=== PATIENT | female | born 1955 | race Caucasian/White ===

== ENCOUNTER 2017-02-21 22:55 | Emergency (ER) | payer OTHER ==
[2017-02-21] MEDS ORDERED: Sodium Chloride 0.9% 1,000 ML IV ONE (23:56)
[2017-02-21] MEDS ORDERED: Albuterol 0.042% Inhal Sol (1.25 mg/3 mL) UD IH STA (23:56)
--- NOTE | 2017-02-21 23:59 | C.PDOC ---
History Of Present Illness Patient came in due to vomiting and nause earlier. She was fgiven zofran with improvement of her symptom. Also complaining of feeling short of breathe. Denies any chest pain. Time Seen by Provider: 02/21/17 23:57 Chief Complaint (Nursing): Shortness Of Breath History Per: Patient, Family, Other (vomiting ) History/Exam Limitations: no limitations Onset/Duration Of Symptoms: Hrs Current Symptoms Are (Timing): Better Initiating Event: Other (vomiting) Quality: Other (shortness of breathing) Exacerbating Factor(s): denies: Exertion, Laying Flat, Coughing Current Respiratory Medications: See Home Med List Pain Scale Rating Of: 0 Associated Symptoms: Other (nausea before) Recent travel outside of the [place]: No Additional History Per: Family Past Medical History Vital Signs: Last Vital Signs Temp 98.6 F 02/22/17 02:53 Pulse 88 02/22/17 02:53 Resp 14 02/22/17 02:53 BP 90/56 L 02/22/17 02:53 Pulse Ox 100 02/22/17 04:02 - Medical History PMH: HTN, Hyperlipidemia Family History: States: Unknown Family Hx - Social History Hx Tobacco Use: No Hx Alcohol Use: No Hx Substance Use: No - Immunization History Hx Tetanus Toxoid Vaccination: No Hx Influenza Vaccination: No Hx Pneumococcal Vaccination: No Review Of Systems Constitutional: Negative for: Fever, Chills, Sweats Eyes: Negative for: Pain ENT: Negative for: Ear Pain, Ear Discharge, Nose Pain, Nose Discharge Cardiovascular: Negative for: Chest Pain, Palpitations, Orthopnea, Paroxysmal Noc. Dyspnea, Edema, Light Headedness Respiratory: Positive for: Shortness of Breath. Negative for: Cough, Wheezing Gastrointestinal: Positive for: Nausea, Vomiting. Negative for: Abdominal Pain , Diarrhea Genitourinary: Negative for: Dysuria, Frequency, Incontinence Musculoskeletal: Negative for: Neck Pain, Shoulder Pain, Arm Pain Skin: Negative for: Rash Neurological: Negative for: Weakness, Numbness, Incoordination, Change in Speech , Confusion, Seizures Psych: Negative for: Anxiety Physical Exam - Physical Exam Appears: Well, Non-toxic Skin: Normal Color Head: Atraumatic Eye(s): bilateral: Normal Inspection, PERRL, EOMI Nose: Normal Tongue: Normal Appearing Lips: Normal Appearing Teeth: Normal Dentition Throat: Normal Neck: Normal Chest: Symmetrical, No Deformity, No Tenderness, No Ecchymosis, No Subcutaneous Emphysema Cardiovascular: Rhythm Regular Respiratory: Wheezing, Other (occa. wheezes) Gastrointestinal/Abdominal: Normal Exam Back: Normal Inspection Extremity: Normal ROM, No Tenderness, No Pedal Edema, No Calf Tenderness ED Course And Treatment - Laboratory Results Result Diagrams: 02/22/17 00:01 02/22/17 00:01 O2 Sat by Pulse Oximetry: 100 - Radiology CXR: Interpreted by Me, Viewed By Me CXR Interpretation: Yes: No Acute Disease. No: Infiltrates Progress Note: Patient stats she feels better and back to normal. Exam: good air entry, no wheezing noted, Lungs: clear. Pulse Ox. _94 % on room air. Reevaluation Time: 02:29 Reassessment Condition: Improved Disposition Counseled Patient/Family Regarding: Diagnosis - Disposition Referrals: Mikie Burnette MD [Staff Provider] - Disposition: HOME/ ROUTINE Disposition Time: 02:30 Condition: GOOD Prescriptions: Albuterol Sulfate [Proventil Hfa] 0.09 mg IH Q6 #1 bottle Instructions: Asthma (DC), Wheezing (ED) Forms: Work Excuse - POA Present On Arrival: None - Clinical Impression Clinical Impression: Wheezes, Asthma
[2017-02-22 00:05] LABS: BASO % 0.4 % (0.0-2.0); EOS # 0.1 K/uL (0.0-0.7); EOS % 0.9 % (0.0-4.0); HEMATOCRIT 41.4 % (34.0-47.0); LYMPH # 1.2 K/uL (1.0-4.3); LYMPH % 11.2 % (20.0-40.0); MEAN CELL VOLUME 86.8 fL (81.0-99.0); MEAN CORPUSCULAR HEMOGLOBIN 28.3 pg (27.0-31.0); MEAN CORPUSCULAR HGB CONC 32.6 g/dL (33.0-37.0); MEAN PLATELET VOLUME 8.7 fL (7.2-11.7); MONO # 0.9 K/uL (0.0-0.8); MONO % 8.1 % (0.0-10.0); RED CELL DISTRIBUTION WIDTH 13.5 % (11.5-14.5); WHITE BLOOD COUNT 10.6 K/uL (4.8-10.8)
[2017-02-22] MEDS ORDERED: Albuterol 0.083% Inhal Sol (2.5 mg/3 mL) UD ONE ×2 (00:06→00:50)
[2017-02-22] MEDS ORDERED: Sodium Chloride 0.9% 1,000 ML ONE (00:08)
[2017-02-22 00:13] LABS: CHLORIDE 97 mmol/L (98-107)
[2017-02-22 00:14] LABS: POTASSIUM 3.8 mmol/L (3.6-5.2); SODIUM 137 mmol/L (132-148)
[2017-02-22 00:16] LABS: ALB/GLOB RATIO 1.2 (1.0-2.1); ALKALINE PHOSPHATASE 90 U/L (38-126); AST/SGOT 34 U/L (14-36); BILIRUBIN,TOTAL 0.8 mg/dL (0.2-1.3); CARBON DIOXIDE 24 mmol/L (22-30); GFR AFRICAN-AMERICAN > 60; TOTAL PROTEIN 8.3 g/dL (6.3-8.3)
[2017-02-22 00:17] LABS: ALT/SGPT 33 U/L (9-52); BLOOD UREA NITROGEN 23 mg/dL (7-17); CALCIUM 8.9 mg/dl (8.6-10.4); GLUCOSE,RANDOM 122 mg/dL (65-105)
[2017-02-22] MEDS ORDERED: Albuterol 0.042% Inhal Sol (1.25 mg/3 mL) UD IH STA (00:34)
[2017-02-22 00:56] LABS: ABG ALLEN TEST POS; DRAW SITE RR
[2017-02-22 02:54] VITALS: BP 90/56; PULSE 88; RESP 14; TEMP 98.6
[2017-02-22 04:02] VITALS: O2SAT 100
--- NOTE | 2017-02-22 09:10 | RAD ---
HISTORY: SOB COMPARISON: No prior similar study available for comparison TECHNIQUE: Chest PA and lateral FINDINGS: LUNGS: Prominent lung markings without evidence of focal consolidation. PLEURA: No significant pleural effusion identified. No pneumothorax apparent. CARDIOVASCULAR: Normal. OSSEOUS STRUCTURES: No significant abnormalities. VISUALIZED UPPER ABDOMEN: Normal. OTHER FINDINGS: None. IMPRESSION: Prominent lung markings.
--- NOTE | 2017-02-26 15:05 | CARD ---
APPROVED REPORT EKG Measurement Heart [id number] <Conclusion> Normal sinus rhythm Left ventricular hypertrophy with repolarization abnormality Abnormal ECG
== END 2017-02-22 02:46 | disposition home or self-care (01) ==
LOC: C.ER 22:55
DX: J45.909 Unspecified asthma, uncomplicated (principal); I10 Essential (primary) hypertension; E78.5 Hyperlipidemia, unspecified
CPT/HCPCS: 36600; 71020; 80053; 82803; 83690; 83880; 84484; 85025; 85378; 94640; 96361; 96374; 99285; J2930; J7040